=== PATIENT | female | born 1955 | race Caucasian/White ===

== ENCOUNTER 2018-07-27 12:48 | Emergency (ER) | payer OTHER ==
[~2018-07-27 12:48] MED LIST: ACET-2743 PO; ALBU18HF7 IH; ALBU2.5V2 IH; ATOR10TA69 PO; FLUT1AER IH; GABA-531 PO; HYDR12.54 PO; LACT10SO32 PO; LISI10TA7 PO; RANO500T3 PO; SUCR1TAB2 PO; TIOT18CA3 IH
[2018-07-27 13:39] LABS: APPEARANCE,URINE Clear (CLEAR); BILIRUBIN,URINE Negative (NEGATIVE); COLOR,URINE Yellow (YELLOW); GLUCOSE, URINE (UA) Negative (NEGATIVE); KETONES,URINE Negative (NEGATIVE); LEUKOCYTE ESTERASE ,URINE Negative (NEGATIVE); NITRATE,URINE Negative (NEGATIVE); OCCULT BLOOD,URINE Moderate (NEGATIVE); PROTEIN,URINE Negative (NEGATIVE); UROBILINOGEN,URINE 0.2 mg/dL (0.2-1.0)
[2018-07-27 13:48] LABS: BACTERIA,URINE None Seen /HPF (None Seen); RBC,URINE 0-1 /HPF (0-1); SQUAMOUS EPITHELIAL CELL,UR Rare /HPF (0-2); WBC,URINE 0-1 /HPF (0-1)
[2018-07-27 13:53] LABS: BASOPHILS % (AUTO) 0.9 % (0.0-5.0); EOSINOPHILS % (AUTO) 3.1 % (0.0-8.0); HEMATOCRIT 37.4 % (36-48); LYMPHOCYTES % (AUTO) 17.7 % (21.0-51.0); MEAN CORPUSCULAR HEMOGLOBIN 27.2 pg (27.0-33.0); MEAN CORPUSCULAR HGB CONC 33.3 g/dL (32.0-36.0); MEAN CORPUSCULAR VOLUME 81.5 fL (79-99); MONOCYTES % (AUTO) 7.4 % (3.0-13.0); NEUTROPHILS % (AUTO) 70.9 % (40.0-77.0); PLATELET COUNT (AUTO) 267 K/uL (130-400); RED BLOOD CELL COUNT(AUTO) 4.59 MIL/uL (4.00-5.50); RED CELL DISTRIBUTION WIDTH 15.5 % (11.0-15.5); WHITE BLOOD COUNT (AUTO) 8.1 K/uL (4.8-10.8)
[2018-07-27] MEDS ORDERED: DEXAMETHASONE SOD PHOSPHATE 10MG/ML 1ML VIAL ONE (13:53)
[2018-07-27 14:02] LABS: POTASSIUM 4.5 mmol/L (3.5-5.1)
[2018-07-27] MEDS ORDERED: IPRATROPIUM 0.5 MG/2.5 ML INH IH ONE (14:03)
[2018-07-27] MEDS ORDERED: ALBUTEROL SULFATE 0.083% 2.5 MG/3 ML INH IH ONE (14:03)
[2018-07-27 14:06] LABS: ALBUMIN 3.2 g/dL (3.5-5.0); BILIRUBIN,TOTAL 0.4 mg/dL (0.2-1.0); TOTAL PROTEIN, SERUM 8.4 g/dL (6.0-8.3)
[2018-07-27 14:31] LABS: B-TYPE NATRIURETIC PEPTIDE 59 pg/mL (0-100)
== END 2018-07-27 15:47 | disposition home or self-care (01) ==
LOC: EDH 12:48
DX: J44.1 Chronic obstructive pulmonary disease with (acute) exacerbation (principal); I25.10 Atherosclerotic heart disease of native coronary artery without angina pectoris; Z90.49 Acquired absence of other specified parts of digestive tract; Z90.710 Acquired absence of both cervix and uterus; Z87.891 Personal history of nicotine dependence
CPT/HCPCS: 36415; 71045; 80053; 81001; 83880; 84484; 85025; 87804 ×2; 93005; 94640; 96374; 99284; J1100

== ENCOUNTER 2018-07-29 12:44 | Emergency (ER) | payer OTHER ==
[2018-07-29 13:15] LABS: EOSINOPHILS % (AUTO) 1.1 % (0.0-8.0); LYMPHOCYTES % (AUTO) 23.3 % (21.0-51.0); MEAN CORPUSCULAR HEMOGLOBIN 27.2 pg (27.0-33.0); MEAN CORPUSCULAR HGB CONC 33.2 g/dL (32.0-36.0); MEAN CORPUSCULAR VOLUME 81.9 fL (79-99); MONOCYTES % (AUTO) 6.8 % (3.0-13.0); NEUTROPHILS % (AUTO) 67.8 % (40.0-77.0); PLATELET COUNT (AUTO) 331 K/uL (130-400); RED BLOOD CELL COUNT(AUTO) 4.77 MIL/uL (4.00-5.50); RED CELL DISTRIBUTION WIDTH 15.9 % (11.0-15.5)
[2018-07-29 13:26] LABS: CREATININE 1.1 mg/dL (0.5-1.5); POTASSIUM 3.4 mmol/L (3.5-5.1)
[2018-07-29 13:31] LABS: ALBUMIN 3.4 g/dL (3.5-5.0); BILIRUBIN,TOTAL 0.3 mg/dL (0.2-1.0); TOTAL PROTEIN, SERUM 8.5 g/dL (6.0-8.3)
[2018-07-29] MEDS ORDERED: METHYLPREDNISOLONE SOD SUCC 125MG/2ML VIAL ONE (13:39)
[2018-07-29] MEDS ORDERED: IPRATROPIUM/ALBUTEROL SULFATE 3 ML SOLUTION IH ONE (13:44)
[2018-07-29 14:03] LABS: ABG HCO3 23.2 mmol/L (21.0-28.0); ABG OXYGEN SATURATION 94.8 % (95.0-99.0); ABG PCO2 34 mmHg (32-45)
== END 2018-07-29 16:01 | disposition home or self-care (01) ==
LOC: EDH 12:44
DX: J44.1 Chronic obstructive pulmonary disease with (acute) exacerbation (principal); I25.10 Atherosclerotic heart disease of native coronary artery without angina pectoris; Z90.710 Acquired absence of both cervix and uterus; Z98.890 Other specified postprocedural states; Z87.891 Personal history of nicotine dependence
CPT/HCPCS: 36415; 36600; 71045; 80053; 82803; 83880; 84484; 85025; 93005; 94640; 96374; 99284; J2930

== ENCOUNTER 2024-02-10 11:29 | Inpatient (IN) | payer OTHER ==
[~2024-02-10] VITALS: Ht 165.1 cm; Wt 94.7 kg
[~2024-02-10 11:29] MED LIST changes: +DILT240T13 PO; +FLUC100T PO; -LACT10SO32 PO; +LACT10SO85 PO; +LISI10TA24 PO; -LISI10TA7 PO; +METH4TAB3 PO; +PRED10TA3 PO
[2024-02-10 11:55] LABS: BASOPHILS # (AUTO) 0.05 K/uL (0.00-0.20); BASOPHILS % (AUTO) 0.5 % (0.0-5.0); EOSINOPHILS # (AUTO) 0.12 K/uL (0.00-0.70); EOSINOPHILS % (AUTO) 1.1 % (0.0-8.0); HEMATOCRIT 36.9 % (36-48); IMMATURE GRANULOCYTE ABSOLUTE 0.05 K/uL (0-1); LYMPHOCYTES # (AUTO) 2.6 K/uL (1.0-4.8); LYMPHOCYTES % (AUTO) 24.1 % (21.0-51.0); MEAN CORPUSCULAR HEMOGLOBIN 27.1 pg (27.0-33.0); MEAN CORPUSCULAR VOLUME 84.8 fL (79-99); MONOCYTES # (AUTO) 0.9 K/uL (0.1-1.0); MONOCYTES % (AUTO) 7.9 % (3.0-13.0); NEUTROPHILS # (AUTO) 7.1 K/uL (1.8-7.7); NEUTROPHILS % (AUTO) 65.9 % (40.0-77.0); PLATELET COUNT (AUTO) 298 K/uL (130-400); RED BLOOD CELL COUNT(AUTO) 4.35 MIL/uL (4.00-5.50); RED CELL DISTRIBUTION WIDTH 15.3 % (11.0-15.5); WHITE BLOOD COUNT (AUTO) 10.7 K/uL (4.8-10.8)
[2024-02-10] MEDS: Solu-medROL 125MG VIAL IVP ONE (12:00)
[2024-02-10 12:01] VITALS: PULSE 86; RESP 22
[2024-02-10] MEDS: ALBUTEROL 0.083% 2.5 MG/3 ML INH IH ONE (12:01)
[2024-02-10 12:11] LABS: CREATININE 1.2 mg/dL (0.5-1.0); MAGNESIUM 1.7 mg/dL (1.80-2.40); POTASSIUM 3.8 mmol/L (3.5-5.1)
[2024-02-10 12:13] LABS: ABG BASE EXCESS 2.9 mmol/L (-2.0-3.0); ABG PCO2 40 mmHg (32-45); DEVICE COMMENT PETE RN RR; PO2, ARTERIAL BG 149.8 mmHg (83.0-108.0); VENT MODE, BG NEB (ROOM AIR)
[2024-02-10 12:39] LABS: B-TYPE NATRIURETIC PEPTIDE 71 pg/mL (0-100)
[2024-02-10 12:48] LABS: APPEARANCE,URINE CLEAR (CLEAR); BILIRUBIN,URINE NEGATIVE (NEGATIVE); COLOR,URINE COLORLESS (YELLOW); GLUCOSE, URINE (UA) NEGATIVE (NEGATIVE); KETONES,URINE NEGATIVE (NEGATIVE); LEUKOCYTE ESTERASE ,URINE NEGATIVE Leu/uL (NEGATIVE); NITRATE,URINE NEGATIVE (NEGATIVE); PROTEIN,URINE NEGATIVE (NEGATIVE); UROBILINOGEN,URINE 0.2 mg/dL (0.2-1.0)
[2024-02-10 12:50] LABS: ADD UA MICROSCOPIC YES
[2024-02-10 12:55] LABS: BACTERIA,URINE RARE /HPF (None Seen); RBC,URINE 0-1 /HPF (0-1); SQUAMOUS EPITHELIAL CELL,UR RARE /HPF (0-2); WBC,URINE 0-1 /HPF (0-1)
[2024-02-10] MEDS: levoFLOXacin 750 MG/D5W 150ML BAG IV ONE (14:27)
[2024-02-10] MEDS ORDERED: Solu-medROL 125MG VIAL IV ONE (15:30)
[2024-02-10] MEDS: 0.9%NACL 1000ML 1,000 ML IV SCH (16:12)
[2024-02-10] MEDS: AZITHROMYCIN 500MG+NS 250ML 250 ML IV SCH (16:12)
[2024-02-10] MEDS ORDERED: GLUCAGON 1MG KIT 1 MG ML IM PRN (16:30)
[2024-02-10] MEDS ORDERED: DEXTROSE 50%-WATER 50 ML DISP.SYRIN IV PRN (16:30)
[2024-02-10] MEDS ORDERED: ALBUTEROL 0.083% 2.5 MG/3 ML INH IH PRN (16:30)
[2024-02-10] MEDS ORDERED: PoTASSium chloRIDE 20MEQ/100ML 100 ML IV PRN (16:30)
[2024-02-10] MEDS ORDERED: ALBUTEROL 0.083% 2.5 MG/3 ML INH IH SCH (18:00)
[2024-02-10] MEDS: IpraTROPium/alBUTERol SULFATE 3 ML SOLUTION IH SCH (19:02)
[2024-02-10] MEDS: BUDESONIDE 0.25 MG/2 ML INH IH SCH (19:07)
[2024-02-10 19:08] VITALS: PULSE 72; RESP 19
[2024-02-10 19:22] VITALS: PULSE 74; RESP 18; O2SAT 98
[2024-02-10] MEDS: Solu-medROL 40MG VIAL IVP SCH (19:44)
[2024-02-10] MEDS: MAGNESIUM 2GM PREMIX 50ML 50 ML IV PRN (19:44)
[2024-02-10] MEDS: FAMOTIDINE 20MG VIAL IV SCH (19:44)
[2024-02-10 21:30] VITALS: BP 149/97; PULSE 95; RESP 18; TEMP 97.9
[2024-02-10] MEDS ORDERED: DICL75TA5 PO (21:51)
[2024-02-10] MEDS ORDERED: PRED-775 PO (21:51)
[2024-02-10] MEDS ORDERED: ATOR20TA65 PO (21:51)
[2024-02-10] MEDS ORDERED: FLUT1BLS13 PO (21:51)
[2024-02-10] MEDS ORDERED: MYCO500T5 PO (21:51)
[2024-02-10] MEDS ORDERED: OLME40TA18 PO (21:51)
[2024-02-10] MEDS ORDERED: ESOM40CA66 PO (21:51)
[2024-02-10 22:36] VITALS: O2SAT 96
[2024-02-10] MEDS: hydrOXYzine 10 MG TABLET PO SCH (23:04)
[2024-02-10 23:14] VITALS: PULSE 77; RESP 18
[2024-02-11] VITALS (15 sets, daily range): BP systolic 134–159; BP diastolic 71–86; PULSE 80–99; RESP 18–19; TEMP 97.7–98.2; O2SAT 96–99
[2024-02-11] MEDS: acetaMINOPHEN 325 MG TAB PO ONE (03:30)
[2024-02-11 06:06] LABS: BASOPHILS # (AUTO) 0.01 K/uL (0.00-0.20); BASOPHILS % (AUTO) 0.2 % (0.0-5.0); HEMATOCRIT 33.7 % (36-48); IMMATURE GRANULOCYTE ABSOLUTE 0.05 K/uL (0-1); LYMPHOCYTES # (AUTO) 0.5 K/uL (1.0-4.8); LYMPHOCYTES % (AUTO) 8.2 % (21.0-51.0); MEAN CORPUSCULAR HEMOGLOBIN 27.5 pg (27.0-33.0); MEAN CORPUSCULAR HGB CONC 31.5 g/dL (32.0-36.0); MEAN CORPUSCULAR VOLUME 87.5 fL (79-99); MONOCYTES # (AUTO) 0.1 K/uL (0.1-1.0); MONOCYTES % (AUTO) 1.3 % (3.0-13.0); NEUTROPHILS % (AUTO) 89.4 % (40.0-77.0); PLATELET COUNT (AUTO) 229 K/uL (130-400); RED BLOOD CELL COUNT(AUTO) 3.85 MIL/uL (4.00-5.50); RED CELL DISTRIBUTION WIDTH 15.1 % (11.0-15.5); WHITE BLOOD COUNT (AUTO) 5.6 K/uL (4.8-10.8)
[2024-02-11 06:33] LABS: ALBUMIN 2.8 g/dL (3.5-5.0); BILIRUBIN,TOTAL 0.3 mg/dL (0.2-1.0); CREATININE 1.1 mg/dL (0.5-1.0); POTASSIUM 4.4 mmol/L (3.5-5.1); TOTAL PROTEIN, SERUM 6.3 g/dL (6.0-8.3)
[2024-02-11 06:40] LABS: HEMOGLOBIN A1C 5.4 % (4.0-6.0)
[2024-02-11] MEDS: acetylCYSTeine10% 4ML VIAL IH SCH (18:54)
[2024-02-11] MEDS: MYCOPHENOLATE MOFETIL 250 MG CAPSULE PO SCH (20:11)
[2024-02-11] MEDS: atorVAStatin 20 MG TABLET PO SCH (20:11)
[2024-02-11] MEDS: Solu-medROL 40MG VIAL IVP SCH (20:14)
[2024-02-12] VITALS (15 sets, daily range): BP systolic 138–166; BP diastolic 60–99; PULSE 73–111; RESP 18–22; TEMP 97.2–98.2; O2SAT 94–98
[2024-02-12 04:29] LABS: INFLUENZA TYPE A Negative For Type A (NEGATIVE); INFLUENZA TYPE B Negative For Type B (NEGATIVE)
[2024-02-12 06:39] LABS: BASOPHILS # (AUTO) 0.01 K/uL (0.00-0.20); BASOPHILS % (AUTO) 0.1 % (0.0-5.0); HEMATOCRIT 32.3 % (36-48); IMMATURE GRANULOCYTE ABSOLUTE 0.07 K/uL (0-1); LYMPHOCYTES # (AUTO) 0.4 K/uL (1.0-4.8); LYMPHOCYTES % (AUTO) 3.7 % (21.0-51.0); MEAN CORPUSCULAR HGB CONC 31.6 g/dL (32.0-36.0); MEAN CORPUSCULAR VOLUME 85.4 fL (79-99); MONOCYTES # (AUTO) 0.4 K/uL (0.1-1.0); MONOCYTES % (AUTO) 3.8 % (3.0-13.0); NEUTROPHILS # (AUTO) 10.4 K/uL (1.8-7.7); NEUTROPHILS % (AUTO) 91.8 % (40.0-77.0); PLATELET COUNT (AUTO) 246 K/uL (130-400); RED BLOOD CELL COUNT(AUTO) 3.78 MIL/uL (4.00-5.50); RED CELL DISTRIBUTION WIDTH 15.2 % (11.0-15.5); WHITE BLOOD COUNT (AUTO) 11.3 K/uL (4.8-10.8)
[2024-02-12 07:01] LABS: ALBUMIN 2.8 g/dL (3.5-5.0); BILIRUBIN,TOTAL 0.2 mg/dL (0.2-1.0); MAGNESIUM 2.7 mg/dL (1.80-2.40); POTASSIUM 4.4 mmol/L (3.5-5.1)
[2024-02-12] MEDS: LoSARTan 100 MG TABLET PO SCH (08:36)
[2024-02-12] MEDS ORDERED: levoFLOXacin 750 MG/D5W 150ML BAG IV SCH (11:30)
[2024-02-12] MEDS: levoFLOXacin 500 MG/D5W 100 ML 100 ML IV SCH (12:06)
[2024-02-12] MEDS ORDERED: levoFLOXacin 500 MG/D5W 100 ML 100 ML IV SCH (15:30)
[2024-02-13] VITALS (14 sets, daily range): BP systolic 128–167; BP diastolic 55–108; PULSE 59–82; RESP 17–22; TEMP 97.4–98.6; O2SAT 95–97
[2024-02-13 05:29] LABS: BASOPHILS # (AUTO) 0.01 K/uL (0.00-0.20); BASOPHILS % (AUTO) 0.1 % (0.0-5.0); EOSINOPHILS # (AUTO) 0.01 K/uL (0.00-0.70); EOSINOPHILS % (AUTO) 0.1 % (0.0-8.0); HEMATOCRIT 34.3 % (36-48); IMMATURE GRANULOCYTE ABSOLUTE 0.06 K/uL (0-1); LYMPHOCYTES # (AUTO) 0.4 K/uL (1.0-4.8); LYMPHOCYTES % (AUTO) 4.4 % (21.0-51.0); MEAN CORPUSCULAR HEMOGLOBIN 27.2 pg (27.0-33.0); MEAN CORPUSCULAR HGB CONC 31.2 g/dL (32.0-36.0); MEAN CORPUSCULAR VOLUME 87.1 fL (79-99); MONOCYTES # (AUTO) 0.4 K/uL (0.1-1.0); MONOCYTES % (AUTO) 4.2 % (3.0-13.0); NEUTROPHILS # (AUTO) 8.7 K/uL (1.8-7.7); NEUTROPHILS % (AUTO) 90.6 % (40.0-77.0); PLATELET COUNT (AUTO) 240 K/uL (130-400); RED BLOOD CELL COUNT(AUTO) 3.94 MIL/uL (4.00-5.50); RED CELL DISTRIBUTION WIDTH 15.1 % (11.0-15.5); WHITE BLOOD COUNT (AUTO) 9.6 K/uL (4.8-10.8)
[2024-02-13 06:06] LABS: ALBUMIN 2.6 g/dL (3.5-5.0); BILIRUBIN,TOTAL 0.2 mg/dL (0.2-1.0); CREATININE 1.1 mg/dL (0.5-1.0); MAGNESIUM 2.5 mg/dL (1.80-2.40); POTASSIUM 4.2 mmol/L (3.5-5.1); TOTAL PROTEIN, SERUM 5.9 g/dL (6.0-8.3)
[2024-02-13] MEDS: Solu-medROL 125MG VIAL IVP SCH (12:51)
[2024-02-13] MEDS: BUDESONIDE 0.25 MG/2 ML INH IH SCH (18:24)
[2024-02-13] MEDS: LACTULOSE 20 GM/30 ML UDCUP PO PRN (21:09)
[2024-02-13] MEDS: trAZOdone HCL 50 MG TAB PO ONE (21:09)
[2024-02-14] VITALS (12 sets, daily range): BP systolic 131–198; BP diastolic 54–99; PULSE 60–76; RESP 16–20; TEMP 97.4–98.2; O2SAT 96–100
[2024-02-14 10:35] LABS: EOSINOPHILS # (AUTO) 0.01 K/uL (0.00-0.70); EOSINOPHILS % (AUTO) 0.1 % (0.0-8.0); HEMATOCRIT 37.1 % (36-48); IMMATURE GRANULOCYTE ABSOLUTE 0.09 K/uL (0-1); LYMPHOCYTES # (AUTO) 0.3 K/uL (1.0-4.8); LYMPHOCYTES % (AUTO) 2.4 % (21.0-51.0); MEAN CORPUSCULAR HEMOGLOBIN 26.9 pg (27.0-33.0); MEAN CORPUSCULAR HGB CONC 32.6 g/dL (32.0-36.0); MEAN CORPUSCULAR VOLUME 82.6 fL (79-99); MONOCYTES # (AUTO) 0.5 K/uL (0.1-1.0); MONOCYTES % (AUTO) 3.9 % (3.0-13.0); NEUTROPHILS # (AUTO) 11.1 K/uL (1.8-7.7); NEUTROPHILS % (AUTO) 92.8 % (40.0-77.0); PLATELET COUNT (AUTO) 287 K/uL (130-400); RED BLOOD CELL COUNT(AUTO) 4.49 MIL/uL (4.00-5.50); WHITE BLOOD COUNT (AUTO) 11.9 K/uL (4.8-10.8)
[2024-02-14 10:45] LABS: POTASSIUM 3.6 mmol/L (3.5-5.1)
[2024-02-14] MEDS: Solu-medROL 40MG VIAL IVP SCH (11:40)
[2024-02-14] MEDS: PoTASSium chloRIDE 20MEQ ER 20 MEQ ERTAB PO PRN (15:57)
[2024-02-14] MEDS: hydrALAZine 20MG/ML VIAL IV PRN (20:58)
[2024-02-15] VITALS (13 sets, daily range): BP systolic 130–160; BP diastolic 54–91; PULSE 75–85; RESP 16–20; TEMP 97.7–98.1; O2SAT 95–98
[2024-02-15] MEDS ORDERED: hydrOXYzine 10 MG TABLET PO ONE
[2024-02-15] MEDS: PoTASSium chl 10% ELIXIR 20MEQ 20 MEQ/15 ML UDCUP PO PRN (02:56)
[2024-02-15 09:27] LABS: BASOPHILS # (AUTO) 0.01 K/uL (0.00-0.20); BASOPHILS % (AUTO) 0.1 % (0.0-5.0); EOSINOPHILS # (AUTO) 0.01 K/uL (0.00-0.70); EOSINOPHILS % (AUTO) 0.1 % (0.0-8.0); HEMATOCRIT 40.7 % (36-48); IMMATURE GRANULOCYTE ABSOLUTE 0.09 K/uL (0-1); LYMPHOCYTES # (AUTO) 0.4 K/uL (1.0-4.8); LYMPHOCYTES % (AUTO) 3.5 % (21.0-51.0); MEAN CORPUSCULAR HEMOGLOBIN 26.9 pg (27.0-33.0); MEAN CORPUSCULAR HGB CONC 31.4 g/dL (32.0-36.0); MEAN CORPUSCULAR VOLUME 85.7 fL (79-99); MONOCYTES # (AUTO) 0.3 K/uL (0.1-1.0); MONOCYTES % (AUTO) 2.7 % (3.0-13.0); NEUTROPHILS # (AUTO) 10.3 K/uL (1.8-7.7); NEUTROPHILS % (AUTO) 92.8 % (40.0-77.0); PLATELET COUNT (AUTO) 299 K/uL (130-400); RED BLOOD CELL COUNT(AUTO) 4.75 MIL/uL (4.00-5.50); WHITE BLOOD COUNT (AUTO) 11.1 K/uL (4.8-10.8)
[2024-02-15 09:38] LABS: CREATININE 1.1 mg/dL (0.5-1.0); POTASSIUM 4.3 mmol/L (3.5-5.1)
[2024-02-15 09:42] LABS: ALBUMIN 3.1 g/dL (3.5-5.0); BILIRUBIN,TOTAL 0.4 mg/dL (0.2-1.0); MAGNESIUM 2.5 mg/dL (1.80-2.40); TOTAL PROTEIN, SERUM 6.6 g/dL (6.0-8.3)
[2024-02-15] MEDS: amLODIPine 5 MG TAB PO SCH (10:06)
[2024-02-15] MEDS: Solu-medROL 125MG VIAL IVP SCH (12:00)
[2024-02-16] VITALS (14 sets, daily range): BP systolic 117–150; BP diastolic 60–87; PULSE 63–87; RESP 16–18; TEMP 97.5–98.4; O2SAT 96–100
[2024-02-16] MEDS: IpraTROPium/alBUTERol SULFATE 3 ML SOLUTION IH ONE (06:20)
[2024-02-16] MEDS: BUDESONIDE 0.25 MG/2 ML INH IH ONE (06:21)
[2024-02-16] MEDS: hydrOXYzine 10 MG TABLET PO ONE (07:53)
[2024-02-16] MEDS ORDERED: Solu-medROL 125MG VIAL IVP SCH (13:00)
[2024-02-16] MEDS: Solu-medROL 125MG VIAL IVP SCH (13:04)
[2024-02-16] MEDS: amLODIPine 5 MG TAB PO SCH (20:25)
[2024-02-17] VITALS (16 sets, daily range): BP systolic 112–142; BP diastolic 63–81; PULSE 71–86; RESP 18; TEMP 97.6–98.1; O2SAT 96–100
[2024-02-17] MEDS: Solu-medROL 40MG VIAL IVP SCH ×2 (13:39→20:59)
[2024-02-17] MEDS: hydrOXYzine 10 MG TABLET PO ONE (23:48)
[2024-02-18 00:06] VITALS: BP 142/79; PULSE 74; RESP 18; TEMP 98.2
[2024-02-18 04:21] VITALS: BP 168/74; PULSE 73; RESP 20; TEMP 97.8
[2024-02-18 05:23] LABS: BASOPHILS # (AUTO) 0.01 K/uL (0.00-0.20); BASOPHILS % (AUTO) 0.1 % (0.0-5.0); EOSINOPHILS # (AUTO) 0.01 K/uL (0.00-0.70); EOSINOPHILS % (AUTO) 0.1 % (0.0-8.0); HEMATOCRIT 34.7 % (36-48); IMMATURE GRANULOCYTE ABSOLUTE 0.17 K/uL (0-1); LYMPHOCYTES # (AUTO) 0.4 K/uL (1.0-4.8); MEAN CORPUSCULAR HEMOGLOBIN 26.9 pg (27.0-33.0); MEAN CORPUSCULAR HGB CONC 31.4 g/dL (32.0-36.0); MEAN CORPUSCULAR VOLUME 85.7 fL (79-99); MONOCYTES # (AUTO) 0.6 K/uL (0.1-1.0); MONOCYTES % (AUTO) 4.3 % (3.0-13.0); NEUTROPHILS # (AUTO) 11.7 K/uL (1.8-7.7); NEUTROPHILS % (AUTO) 91.2 % (40.0-77.0); PLATELET COUNT (AUTO) 242 K/uL (130-400); RED BLOOD CELL COUNT(AUTO) 4.05 MIL/uL (4.00-5.50); RED CELL DISTRIBUTION WIDTH 15.2 % (11.0-15.5); WHITE BLOOD COUNT (AUTO) 12.8 K/uL (4.8-10.8)
[2024-02-18 05:38] LABS: MAGNESIUM 2.3 mg/dL (1.80-2.40); POTASSIUM 4.3 mmol/L (3.5-5.1)
[2024-02-18 06:29] VITALS: PULSE 70; RESP 18; O2SAT 99
[2024-02-18 08:00] VITALS: BP 157/93; PULSE 70; RESP 18; TEMP 97.5; O2SAT 99
[2024-02-18] MEDS ORDERED: LEVO-70 PO (08:49)
[2024-02-18] MEDS ORDERED: PRED20TA3 PO (08:49)
== END 2024-02-18 11:30 | disposition home or self-care (01) | DRG 193 ==
LOC: EDH 11:29 → EDHIP 15:18 → 3CH 20:38
PROVIDERS: ADMIT Internal Medicine Sleep Medicine; ATTEND Internal Medicine Sleep Medicine
DX: J18.9 Pneumonia, unspecified organism (principal); E43 Unspecified severe protein-calorie malnutrition; J96.21 Acute and chronic respiratory failure with hypoxia; J44.1 Chronic obstructive pulmonary disease with (acute) exacerbation; Z20.822 Contact with and (suspected) exposure to COVID-19; E78.5 Hyperlipidemia, unspecified; E83.42 Hypomagnesemia; J84.10 Pulmonary fibrosis, unspecified; G47.33 Obstructive sleep apnea (adult) (pediatric); F17.200 Nicotine dependence, unspecified, uncomplicated; K21.9 Gastro-esophageal reflux disease without esophagitis; E66.812 Obesity, class 2; I50.9 Heart failure, unspecified; I11.0 Hypertensive heart disease with heart failure; Z90.710 Acquired absence of both cervix and uterus; Z99.81 Dependence on supplemental oxygen; Z68.36 Body mass index [BMI] 36.0-36.9, adult; Z90.49 Acquired absence of other specified parts of digestive tract
CPT/HCPCS: 36415; 36600; 71045; 78580; 80048; 80053; 81001; 82306; 82607; 82803; 82948; 83036; 83735; 83880; 84145; 84484; 85025; 85378; 85651; 86140; 87040; 87071; 87205; 87426; 87449; 87804; 93005; 94640; 94664; A9540; G0378; J0360; J0456; J1956; J2919; J3475; J3490; J7030; J7517; J7608

== ENCOUNTER 2025-05-01 09:47 | Observation (INO) | payer OTHER ==
[~2025-05-01] VITALS: Ht 165.1 cm; Wt 97.6 kg
[2025-05-01] VITALS (9 sets, daily range): BP systolic 152–164; BP diastolic 81–91; PULSE 81–94; RESP 16–20; TEMP 97.6–98.3; O2SAT 97–100
[~2025-05-01 09:47] MED LIST changes: -ACET-2743 PO; -ALBU18HF7 IH; -ALBU2.5V2 IH; +ATOR10 PO; -ATOR10TA69 PO; +AZIT500T4 PO; +DILT240C81 PO; -DILT240T13 PO; -FLUC100T PO; -FLUT1AER IH; +FLUT1BLS12 PO; +FURO40TA7 PO; -GABA-531 PO; -HYDR12.54 PO; +HYDR200T75 PO; -LACT10SO85 PO; +LEVO750T68 PO; -LISI10TA24 PO; -METH4TAB3 PO; +MYCO500T PO; +PILOC5 PO; +PRED-775 PO; -PRED10TA3 PO; +PRED20TA3 PO; -RANO500T3 PO; +REVE175V IH; -SUCR1TAB2 PO; +THEO300T52 PO; -TIOT18CA3 IH
[2025-05-01 10:39] LABS: IMMATURE GRANULOCYTE ABSOLUTE 0.03 K/uL (0-1); NUCLEATED RED BLOOD CELLS 0.0 % (0.0-0.19); PLATELET COUNT (AUTO) 195 K/uL (130-400); RED BLOOD CELL COUNT(AUTO) 3.80 MIL/uL (4.00-5.50); RED CELL DISTRIBUTION WIDTH 13.3 % (11.0-15.5); WHITE BLOOD COUNT (AUTO) 7.8 K/uL (4.8-10.8)
[2025-05-01 10:50] LABS: CREATININE 1.0 mg/dL (0.5-1.0); GLOMERULAR FILTR. RATE CALC 61.0 mL/min (>90); GLUCOSE,RANDOM 85.0 mg/dL (70-105); SODIUM SERUM 141.0 mmol/L (136-145); UREA NITROGEN, BLOOD 23.0 mg/dL (7-18)
[2025-05-01 11:07] LABS: INR 0.99 (0.85-1.15)
--- NOTE | 2025-05-01 11:07 | HMCIMG ---
STUDY CR chest, 1 view HISTORY Shortness of breath. TECHNIQUE Portable anteroposterior chest radiograph. COMPARISON Chest radiograph dated 10/27/2024 at 18:03 EDT. FINDINGS LUNGS There are diffusely scattered fine reticular opacities throughout both lungs, without focal consolidation, lobar collapse, or new mass. The reticular pattern appears overall similar to the prior study, without interval progression. No acute airspace infiltrate is seen. PLEURAL SPACES No pleural effusion or pneumothorax is identified. HEART AND MEDIASTINUM Cardiomediastinal silhouette is within normal limits and stable. BONES AND SOFT TISSUES No acute displaced rib fracture or aggressive osseous lesion is seen. Visualized soft tissues are unremarkable. IMPRESSION * Intervally stable, diffusely scattered bilateral reticular opacities, suggestive of a chronic interstitial process; no superimposed focal consolidation or large effusion. * No new acute cardiopulmonary abnormality. /[place]
[2025-05-01 11:24] LABS: SARS-CoV-2, RNA, NAAT NEGATIVE SARS CoV-2 (NEGATIVE)
[2025-05-01 11:33] LABS: INFLUENZA TYPE A Negative For Type A (NEGATIVE); INFLUENZA TYPE B Negative For Type B (NEGATIVE)
--- NOTE | 2025-05-01 12:47 | NUR ---
BENCHMARK JUST NOW CALLED AND IS SPEAKING W/DR RODRIGEZ
--- NOTE | 2025-05-01 12:50 | ERN ---
General Chief Complaint: Shortness of Breath Stated Complaint: HX OF PULMORAY FIBROSIS, SOB Time Seen by MD: 09:55 History of Present Illness Initial Comments 69-year-old female has been for shortness of breath. Patient is a with a has no concerns. Allergies: Coded Allergies: No Known Drug Intolerances (Verified Allergy, 01/02/12) Home Meds Active Scripts Prednisone (Prednisone) 20 Mg Tablet, 40 MG PO DAILY for 7 Days, #7 TAB Prov:THADDEUS GAMA DNP 10/30/24 Levofloxacin (Levaquin 750Mg Tabs) 750 Mg Tablet, 750 MG PO DAILY for 10 Days, #10 TAB Prov:THADDEUS GAMA DNP 10/30/24 Furosemide (Lasix 40Mg Tab) 40 Mg Tablet, 1 TAB PO DAILY for 30 Days, #30 TAB 0 Refills Prov:JINA BENDER MD 04/29/24 Reported Medications Fluticasone Propion/Salmeterol (Fluticasone-Salmeterol 250-50) 250 Mcg-50 Mcg/Dose Blst.w.dev, 1 PUFF PO BID 10/28/24 Azithromycin (Azithromycin) 500 Mg Tablet, 1 TAB PO DAILY 10/28/24 Theophylline Anhydrous (Theophylline Anhydrous) 300 Mg Tab.er.12h, 1 TAB PO HS 10/28/24 Prednisone (Deltasone/Orasone [Bulk]) 10 Mg Tab, 1 TAB PO DAILY 10/28/24 Hydroxychloroquine Sulfate (Hydroxychloroquine Sulfate) 200 Mg Tablet, 1 TAB PO BID 10/28/24 Pilocarpine HCl (Salagen) 5 Mg Tab, 1 TAB PO TID for 30 Days, #90 TAB 0 Refills 10/28/24 Revefenacin (Yupelri) 175 Mcg/3 Ml Vial.neb, 1 VIAL IH DAILY for 30 Days, #90 ML 0 Refills 10/28/24 Diltiazem HCl (Diltiazem ER) 240 Mg Capsule.er, 1 CAP PO DAILY for 30 Days, #30 CAP 0 Refills 04/25/24 Mycophenolate Mofetil (Cellcept) 500 Mg Tablet, 1 TAB PO BID for 30 Days, #60 TAB 0 Refills 04/25/24 Atorvastatin Calcium (LIPITOR) 20 Mg Tab, 1 TAB PO DAILY for 30 Days, #30 TAB 0 Refills 04/25/24 Past Medical History Past Medical History: COPD, Hypertension, Other Medical History Other: PULMONARY FIBROSIS Past Surgical History: Cholecystectomy, Other Surgical History Other: BACK, KNEE SX Female( History) History: Not Applicable ROS Dictation Dyspnea Physical Exam General Appearance: (+) no apparent distress, (+) apparent distress Orientation: (+) alert, (+) oriented x 3 Respiratory Comment That has bilateral wheezing and rales Heart: (+) regular, (+) no gallop Gastrointestinal: (+) soft, (+) non-tender Results Laboratory and Microbiology Lab and Micro Result Laboratory Tests Test 05/01/25 10:07 05/01/25 10:29 White Blood Count 7.8 K/uL (4.8-10.8) Red Blood Count 3.80 MIL/uL (4.00-5.50) L Hemoglobin 11.0 g/dL (12.0-16.0) L Hematocrit 34.8 % (36-48) L Mean Corpuscular Volume 91.6 fL (79-99) Mean Corpuscular Hemoglobin 28.9 pg (27.0-33.0) Mean Corpuscular Hemoglobin Concent 31.6 g/dL (32.0-36.0) L Red Cell Distribution Width 13.3 % (11.0-15.5) Platelet Count 195 K/uL (130-400) Mean Platelet Volume 9.5 fL (7.5-10.5) Immature Granulocyte % (Auto) 0.4 % (0-1) Neutrophils (%) (Auto) 73.5 % (40.0-77.0) Lymphocytes (%) (Auto) 15.9 % (21.0-51.0) L Monocytes (%) (Auto) 8.6 % (3.0-13.0) Eosinophils (%) (Auto) 1.2 % (0.0-8.0) Basophils (%) (Auto) 0.4 % (0.0-5.0) Neutrophils # (Auto) 5.7 K/uL (1.8-7.7) Lymphocytes # (Auto) 1.2 K/uL (1.0-4.8) Monocytes # (Auto) 0.7 K/uL (0.1-1.0) Eosinophils # (Auto) 0.09 K/uL (0.00-0.70) Basophils # (Auto) 0.03 K/uL (0.00-0.20) Absolute Immature Granulocyte (auto 0.03 K/uL (0-1) Nucleated Red Blood Cells 0.0 % (0.0-0.19) Prothrombin Time 10.5 SEC (9.6-11.6) Prothromb Time International Ratio 0.99 (0.85-1.15) Activated Partial Thromboplast Time 22.4 SEC (26.3-35.5) L Sodium Level 141 mmol/L (136-145) Potassium Level 4.4 mmol/L (3.5-5.1) Chloride Level 106 mmol/L (101-111) Carbon Dioxide Level 30 mmol/L (21-32) Blood Urea Nitrogen 23 mg/dL (7-18) H Creatinine 1.0 mg/dL (0.5-1.0) Glomerular Filtration Rate Calc 61 mL/min (>90) Random Glucose 85 mg/dL (70-105) Lactic Acid Level 1.2 mmol/L (0.8-2.5) Total Calcium 9.1 mg/dL (8.5-10.1) Troponin I High Sensitivity 16 ng/L (4-50) Procalcitonin 0.05 ng/mL (0.05-0.5) Influenza Type A Antigen Negative For Type A Influenza Type B Antigen Negative For Type B SARS-CoV-2, RNA, NAAT NEGATIVE SARS CoV-2 MDM MDM: Differential diagnosis: Rationale: Tests considered and ordered secondary to shared decision making include: labs, ECG and radiology Previous outside records reviewed: Old ER visits. Risk of complication and/or morbidity or mortality of patient management: None Medications-Per medication reconciliation Need for hospitalization: Patient does meet criteria for hospitalization. Need for emergency major/minor surgery: No There are no social concerns with this patient. Prescription drug management Prescriptions will include symptomatic care Patient's prior external medical records from other ER visits were reviewed by me as indicated. Prior testing and results from previous visits were reviewed. Prior tests were taken into account with medical decision making and resource utilization, independent historian/historians were used to obtain complete medical history. I independently interpreted the test that were performed, results were reviewed by me and considered findings on radiology if ordered. Medical management and examination interpretation discussions were had by me with other qualified healthcare professionals as indicated for the patient's care. ED Course Orders Procedure Category Date Status Time 12 Lead Ekg Tracing- EKG 05/01/25 Logged Technical 09:55 Cbc With Differential LAB 05/01/25 Complete 09:55 Basic Metabolic Panel LAB 05/01/25 Complete 09:55 Influenza Type A & B, LAB 05/01/25 Complete Rapid 09:55 Covid Rna Naat LAB 05/01/25 Complete 09:55 Lactic Acid LAB 05/01/25 Complete 09:55 Procalcitonin LAB 05/01/25 Complete 09:55 Pt And Ptt LAB 05/01/25 Complete 09:55 Troponin I High LAB 05/01/25 Complete Sensitivity 09:55 Chest 1vw RAD 05/01/25 Resulted 09:55 Methylprednisolone PHA 05/01/25 Complete Succ 125mg (Solu-Medr 10:00 Ipratropium/Albuterol PHA 05/01/25 Complete Neb (Duoneb) 10:00 Ipratropium/Albuterol PHA 05/01/25 Complete Neb (Duoneb) 10:30 Ipratropium/Albuterol PHA 05/01/25 Complete Neb (Duoneb) 10:30 Current Medications Medications (Trade) Dose Ordered Sig/Junior Route PRN Reason Start Time Stop Time Status Last Admin Dose Admin Albuterol (DUOneb) 1 HOUR CONTINUOUS NEB ONCE ONCE IH 05/01/25 10:30 05/01/25 10:14 DC Albuterol (DUOneb) 1 UDVIAL ONCE ONCE IH 05/01/25 10:00 05/01/25 10:10 DC Albuterol (DUOneb) 4 udvial ONCE ONCE IH 05/01/25 10:30 05/01/25 10:31 DC 05/01/25 10:18 Methylprednisolone Sodium Succinate (Solu-medROL 125MG) 120 mg ONCE ONCE IVP 05/01/25 10:00 05/01/25 10:01 DC 05/01/25 10:39 Vital Signs Date Time Temp Pulse Resp B/P (MAP) Pulse Ox O2 Delivery O2 Flow Rate FiO2 05/01/25 10:45 98.4 74 19 140/70 100 Room Air* 0 21 05/01/25 10:22 81 20 05/01/25 09:48 97.5 79 22 173/81 96 Room Air DX & DISP Disposition: Inpatient Departure Impression: Primary Impression: COPD exacerbation Condition: Stable Referrals: SELF,REFERRAL (PCP) JENNY SOTO MD May 01, 2025 12:50
[2025-05-01] MEDS ORDERED: ARTIFICAL TEARS SOL 15 ML OP PRN (13:00)
[2025-05-01] MEDS ORDERED: guaiFENesin-DM 200/20MG 10ML PO PRN (13:00)
[2025-05-01] MEDS ORDERED: BENZOCAINE/MENTH/CETYLPYRD CL 1 EACH LOZENGE MM PRN (13:00)
[2025-05-01] MEDS ORDERED: NITROGLYCERIN 0.4 MG SL TAB SL PRN (13:00)
[2025-05-01] MEDS ORDERED: MAG/ALUM/SIMETH 30 ML UDCUP PO PRN (13:00)
[2025-05-01] MEDS ORDERED: LIDOCAINE HCL 2% VISCOUS 30 ML, MAG/ALUM/SIMETH 30ML 30 ML, DICYCLOMINE HCL 20 MG PO PRN (13:00)
[2025-05-01] MEDS ORDERED: LACTULOSE 20 GM/30 ML UDCUP PO PRN (13:00)
[2025-05-01] MEDS ORDERED: ACET-2079 PO (14:07)
[2025-05-01] MEDS ORDERED: MYCO500T5 PO (14:07)
[2025-05-01] MEDS ORDERED: TIZA-194 PO (14:07)
[2025-05-01] MEDS ORDERED: ERGO500093 PO (14:07)
[2025-05-01] MEDS ORDERED: FURO40TA5 PO (14:07)
[2025-05-01] MEDS ORDERED: PRED10TA3 PO (14:07)
--- NOTE | 2025-05-01 14:30 | HP ---
[facility] HISTORY & PHYSICAL Date Patient Seen: May 01, 2025 Time of Visit: 14:30 Supervising Physician: [Dr. Montilla] Primary Care Physician: [BIS] Outpatient Specialists: [ ] Inpatient Consults: [N/A] PROBLEM LIST: Chronic obstructive pulmonary disease with acute exacerbation Acute normocytic normochromic anemia Hypertension Hyperlipidemia Pulmonary fibrosis Obesity Obstructive sleep apnea HPI: [This is a 69 yo fm with a hx of COPD who presented to the ED for evaluation of shortness of breath worsened over the last couple of days. She admits using home oxygen, mostly at night. Patient states some sick contacts at home. She does have a chronic cough, unable to expectorate phlegm currently. Has been a smoker since 32 years old and states does not smoke as much now. Patient follows Dr. Adams, pulmonology outpatient. She is treated for pulmonary fibrosis with multiple medications including ofev, theophyline, and mycophenylate. Her vitals and labs on admission were unremarkable. She is currently on room air saturating well however unable to take a deep breath without causing a significant coughing spell. Her CXR shows pronounced pulmonary fibrosis. Her COVID and flu swabs were negative in the ED.] Plan: Start solumedrol Duonebs Order BNP Obtain sputum culture if able Obtain ABG Reassess in AM, possible DC PAST MEDICAL HX: see above PAST SURGICAL HX: noncontributory SOCIAL HISTORY: No tobacco, ETOH, or illicit drug use Coded Allergies: No Known Drug Intolerances (Verified Allergy, 01/02/12) REVIEW OF SYSTEMS: 12 point ROS reviewed with patient. Pertinent positives mentioned above. Otherwise negative. PHYSICAL EXAM: GENERAL: alert, weak, awake oriented x 3, chronically ill appearing HEENT: EOMI, Sclera non icteric, moist mucosa NECK: Supple, no JVD, trachea midline LUNGS: bilateral chest tightness and wheezing, severe coughing spell triggered with deep inspiration HEART: Regular rate and rhythm. Normal S1 and S2, without murmurs ABD: Abdomen soft, nontender. Bowel sounds present EXT: No clubbing cyanosis or edema NEURO: Alert and oriented to person, follows commands Vital Signs (last 8hr) Date Time Temp Pulse Resp B/P (MAP) Pulse Ox O2 Delivery O2 Flow Rate FiO2 05/01/25 14:29 97.9 80 19 169/75 97 Room Air* 0 21 05/01/25 10:45 98.4 74 19 140/70 100 Room Air* 0 21 05/01/25 10:22 81 20 05/01/25 09:48 97.5 79 22 173/81 96 Room Air LABS: Hematology Labs: Test 05/01/25 10:07 Range/Units White Blood Count 7.8 4.8-10.8 K/uL Red Blood Count 3.80 L 4.00-5.50 MIL/uL Hemoglobin 11.0 L 12.0-16.0 g/dL Hematocrit 34.8 L 36-48 % Mean Corpuscular Volume 91.6 79-99 fL Mean Corpuscular Hemoglobin 28.9 27.0-33.0 pg Mean Corpuscular Hemoglobin Concent 31.6 L 32.0-36.0 g/dL Red Cell Distribution Width 13.3 11.0-15.5 % Platelet Count 195 130-400 K/uL Mean Platelet Volume 9.5 7.5-10.5 fL Immature Granulocyte % (Auto) 0.4 0-1 % Neutrophils (%) (Auto) 73.5 40.0-77.0 % Lymphocytes (%) (Auto) 15.9 L 21.0-51.0 % Monocytes (%) (Auto) 8.6 3.0-13.0 % Eosinophils (%) (Auto) 1.2 0.0-8.0 % Basophils (%) (Auto) 0.4 0.0-5.0 % Neutrophils # (Auto) 5.7 1.8-7.7 K/uL Lymphocytes # (Auto) 1.2 1.0-4.8 K/uL Monocytes # (Auto) 0.7 0.1-1.0 K/uL Eosinophils # (Auto) 0.09 0.00-0.70 K/uL Basophils # (Auto) 0.03 0.00-0.20 K/uL Absolute Immature Granulocyte (auto 0.03 0-1 K/uL Nucleated Red Blood Cells 0.0 0.0-0.19 % Chemistry Labs: Test 05/01/25 10:07 Range/Units Sodium Level 141 136-145 mmol/L Potassium Level 4.4 3.5-5.1 mmol/L Chloride Level 106 101-111 mmol/L Carbon Dioxide Level 30 21-32 mmol/L Blood Urea Nitrogen 23 H 7-18 mg/dL Creatinine 1.0 0.5-1.0 mg/dL Glomerular Filtration Rate Calc 61 >90 mL/min Random Glucose 85 70-105 mg/dL Lactic Acid Level 1.2 0.8-2.5 mmol/L Total Calcium 9.1 8.5-10.1 mg/dL Troponin I High Sensitivity 16 4-50 ng/L Procalcitonin 0.05 0.05-0.5 ng/mL Coagulation Labs: Test 05/01/25 10:07 Range/Units Prothrombin Time 10.5 9.6-11.6 SEC Prothromb Time International Ratio 0.99 0.85-1.15 Activated Partial Thromboplast Time 22.4 L 26.3-35.5 SEC DIAGNOSTICS / RADIOLOGY RESULTS: [ ] PLAN NEURO: Minimize central acting medications as possible. Maintain fall precautions, adequate lighting during the day PULMONARY: Supplemental 02 as needed. Maintain aspiration precautions at all times CARDIOVASCULAR: Follow hemodynamics. Vital signs per facility protocol GI & NUTRITION: Continue with nutritional support. Continue stool softeners and laxatives as needed. KIDNEYS & ELECTROLYTES: Strict monitoring of intake, output and overall fluid balance. Avoid nephrotoxic medications to the extent possible. Medications to be dosed according to renal function. Monitor electrolytes and replace as needed ENDOCRINE: Maintain blood glucose between 100-180 at all times. Hypoglycemia protocol in place INFECTIOUS DISEASE: Trend temperature, WBC and procalcitonin level Follow cultures, deescalate antibiotics as soon as possible. Panculture if new onset fever ONCOLOGY/HEMATOLOGY/COAGULATION: Monitor for s/s of bleeding Monitor hemoglobin, coagulation studies as needed SKIN: Pressure ulcer prevention per facility protocol Specialty mattress ORTHO/REHAB: Continue PT/OT Prophylaxis: Continue GI and DVT prophylaxis Code Status: Full Resuscitation Disposition: TBBRIA PARDO May 01, 2025 14:30
--- NOTE | 2025-05-01 14:50 | EKG ---
[facility] Test Date: 2025-05-01 Test Time: 09:59:46 Pat Name: NABEEL LYON Department: [facility] Room: 326 Gender: F Rn Admissions: [id number] : 1955 Requested By: JENNY SOTO Order Number: [id number] Reading MD: Day Bello Measurements Intervals [place] Rate: 72 P: 53 CA: 182 QRS: 23 QRSD: 92 T: 26 QT: 406 QTc: 445 Interpretive Statements Sinus rhythm Compared to ECG 10/27/2024 17:37:39 Myocardial infarct finding no longer present Electronically Signed On 05-03-2025 08:58:14 CREDIT CONTROL CLERK by Day Bello Please click the below link to view image of tracing.
[2025-05-01] MEDS: SODIUM CHLORIDE 3% FOR INHALATION 4 ML/AMP VIAL.NEB IH ONE (18:57)
[2025-05-01] MEDS: FAMOTIDINE 20MG TAB PO SCH (20:50)
[2025-05-01] MEDS: Solu-medROL 40MG VIAL IVP SCH (20:50)
[2025-05-01] MEDS ORDERED: FAMOTIDINE 20MG VIAL IV SCH (21:00)
[2025-05-02] VITALS (16 sets, daily range): BP systolic 138–183; BP diastolic 69–93; PULSE 82–100; RESP 16–20; TEMP 98–98.9; O2SAT 97–100
[2025-05-02 01:44] LABS: ABG BASE EXCESS -1.0 mmol/L (-2.0-3.0); ABG HCO3 21.5 mmol/L (21.0-28.0); ABG OXYGEN SATURATION 98.3 % (94.0-98.0); ABG PCO2 31 mmHg (32-45); ABG PH 7.467 (7.350-7.450); PO2, ARTERIAL BG 108.4 mmHg (83.0-108.0); TEMPERATURE, CELSIUS BG 37.0 CELSIUS (35.5-37.0); VENT MODE, BG RA (ROOM AIR)
[2025-05-02] MEDS: MYCOPHENOLATE MOFETIL 250 MG CAPSULE PO SCH (20:47)
[2025-05-02] MEDS ORDERED: THEOPHYLLINE ANHYDROUS 100 MG CAP.ER.24H PO SCH (21:00)
--- NOTE | 2025-05-02 21:20 | PN ---
[facility] PROGRESS NOTE Date Patient Seen: May 02, 2025 Time of Visit: 21:20 Supervising Physician: Dr. Zeyad Montilla Primary Care Physician: [BIS] Outpatient Specialists: [ ] Inpatient Consults: [N/A] PROBLEM LIST: Chronic obstructive pulmonary disease with acute exacerbation Acute normocytic normochromic anemia Hypertension Hyperlipidemia Pulmonary fibrosis Obesity Obstructive sleep apnea INTERVAL HISTORY: Patient is assessed and seen while resting in bed head of the bed elevated patient awake alert oriented accompanied by patient's bedside nurse. Nursing staff report no adverse events occurring overnight. Reviewed and discussed with patient medications being used, home medications, patient confirmed uses home O2. As needed has been prescribed, current with her medications, reconciled and restarted those that are appropriate, following discussed laboratory results vital signs. Plan is patient overnight reassess in a.m. patient has a improve patient can be discharged home follow up with PCP for outpatient. Further orders per course of stay. A.m. labs ordered. REVIEW OF SYSTEMS: 12 point ROS reviewed with patient. Pertinent positives mentioned above. Otherwise negative. PHYSICAL EXAM: GENERAL: alert, weak, awake oriented x 3, chronically ill appearing HEENT: EOMI, Sclera non icteric, moist mucosa NECK: Supple, no JVD, trachea midline LUNGS: bilateral chest tightness and wheezing, severe coughing spell triggered with deep inspiration HEART: Regular rate and rhythm. Normal S1 and S2, without murmurs ABD: Abdomen soft, nontender. Bowel sounds present EXT: No clubbing cyanosis or edema NEURO: Alert and oriented to person, follows commands Vital Signs (last 8hr) Date Time Temp Pulse Resp B/P (MAP) Pulse Ox O2 Delivery O2 Flow Rate FiO2 05/02/25 21:14 98.2 100 20 138/70 99 Nasal Cannula 2.0 05/02/25 20:00 98.2 100 20 138/70 99 Nasal Cannula 2.0 05/02/25 18:35 89 18 05/02/25 18:35 89 18 N/Cannula Low lpm 2.0 05/02/25 17:50 96 167/79 05/02/25 15:48 98.1 96 18 169/79 98 Room Air 05/02/25 14:20 82 16 166/87 100 Room Air LABS: Hematology Labs: Test 05/01/25 10:07 Range/Units White Blood Count 7.8 4.8-10.8 K/uL Red Blood Count 3.80 L 4.00-5.50 MIL/uL Hemoglobin 11.0 L 12.0-16.0 g/dL Hematocrit 34.8 L 36-48 % Mean Corpuscular Volume 91.6 79-99 fL Mean Corpuscular Hemoglobin 28.9 27.0-33.0 pg Mean Corpuscular Hemoglobin Concent 31.6 L 32.0-36.0 g/dL Red Cell Distribution Width 13.3 11.0-15.5 % Platelet Count 195 130-400 K/uL Mean Platelet Volume 9.5 7.5-10.5 fL Immature Granulocyte % (Auto) 0.4 0-1 % Neutrophils (%) (Auto) 73.5 40.0-77.0 % Lymphocytes (%) (Auto) 15.9 L 21.0-51.0 % Monocytes (%) (Auto) 8.6 3.0-13.0 % Eosinophils (%) (Auto) 1.2 0.0-8.0 % Basophils (%) (Auto) 0.4 0.0-5.0 % Neutrophils # (Auto) 5.7 1.8-7.7 K/uL Lymphocytes # (Auto) 1.2 1.0-4.8 K/uL Monocytes # (Auto) 0.7 0.1-1.0 K/uL Eosinophils # (Auto) 0.09 0.00-0.70 K/uL Basophils # (Auto) 0.03 0.00-0.20 K/uL Absolute Immature Granulocyte (auto 0.03 0-1 K/uL Nucleated Red Blood Cells 0.0 0.0-0.19 % Chemistry Labs: Test 05/02/25 19:36 05/02/25 01:05 05/01/25 10:07 Range/Units Whole Blood Glucose 118 H 70-110 MG/DL B-Type Natriuretic Peptide 110 H 0-100 pg/mL Sodium Level 141 136-145 mmol/L Potassium Level 4.4 3.5-5.1 mmol/L Chloride Level 106 101-111 mmol/L Carbon Dioxide Level 30 21-32 mmol/L Blood Urea Nitrogen 23 H 7-18 mg/dL Creatinine 1.0 0.5-1.0 mg/dL Glomerular Filtration Rate Calc 61 >90 mL/min Random Glucose 85 70-105 mg/dL Lactic Acid Level 1.2 0.8-2.5 mmol/L Total Calcium 9.1 8.5-10.1 mg/dL Troponin I High Sensitivity 16 4-50 ng/L Procalcitonin 0.05 0.05-0.5 ng/mL Coagulation Labs: Test 05/01/25 10:07 Range/Units Prothrombin Time 10.5 9.6-11.6 SEC Prothromb Time International Ratio 0.99 0.85-1.15 Activated Partial Thromboplast Time 22.4 L 26.3-35.5 SEC DIAGNOSTICS / RADIOLOGY RESULTS: [ ] PLAN Telemetry monitoring. Med surge status. Solu-Medrol 40 mg IV b.i.d. Breathing treatment ordered q.6 hours Aspiration precautions Incentive spirometer 6-10 times an hour while patient is awake and out of bed Out of bed for all meals. PT to evaluate discharge recommendations Further orders per course of stay A.m. labs Anticipate discharge within next 24 hours. NEURO: Minimize central acting medications as possible. Maintain fall precautions, adequate lighting during the day PULMONARY: Supplemental 02 as needed. Maintain aspiration precautions at all times CARDIOVASCULAR: Follow hemodynamics. Vital signs per facility protocol GI & NUTRITION: Continue with nutritional support. Continue stool softeners and laxatives as needed. KIDNEYS & ELECTROLYTES: Strict monitoring of intake, output and overall fluid balance. Avoid nephrotoxic medications to the extent possible. Medications to be dosed according to renal function. Monitor electrolytes and replace as needed ENDOCRINE: Maintain blood glucose between 100-180 at all times. Hypoglycemia protocol in place INFECTIOUS DISEASE: Trend temperature, WBC and procalcitonin level Follow cultures, deescalate antibiotics as soon as possible. Panculture if new onset fever ONCOLOGY/HEMATOLOGY/COAGULATION: Monitor for s/s of bleeding Monitor hemoglobin, coagulation studies as needed SKIN: Pressure ulcer prevention per facility protocol Specialty mattress ORTHO/REHAB: Continue PT/OT Prophylaxis: Continue GI and DVT prophylaxis Code Status: Full Resuscitation Disposition: YAYO POTTS AGACNP May 02, 2025 21:20
[2025-05-03] VITALS (11 sets, daily range): BP systolic 153–163; BP diastolic 76–108; PULSE 82–98; RESP 18–20; TEMP 97.9–98.2; O2SAT 97–100
[2025-05-03 04:14] LABS: NUCLEATED RED BLOOD CELLS 0.0 % (0.0-0.19); PLATELET COUNT (AUTO) 185.0 K/uL (130-400); RED BLOOD CELL COUNT(AUTO) 3.94 MIL/uL (4.00-5.50); RED CELL DISTRIBUTION WIDTH 13.2 % (11.0-15.5); WHITE BLOOD COUNT (AUTO) 7.7 K/uL (4.8-10.8)
[2025-05-03 04:37] LABS: ASPARTATE AMINOTRANSFERASE 24.0 U/L (10-37); CREATININE 1.2 mg/dL (0.5-1.0); GLOMERULAR FILTR. RATE CALC 49.0 mL/min (>90); GLUCOSE,RANDOM 122.0 mg/dL (70-105); SODIUM SERUM 141.0 mmol/L (136-145); TOTAL PROTEIN, SERUM 5.8 g/dL (6.0-8.3); UREA NITROGEN, BLOOD 25.0 mg/dL (7-18)
--- NOTE | 2025-05-03 13:09 | EKG ---
[facility] Test Date: 2025-05-01 Test Time: 16:26:40 Pat Name: NABEEL LYON Department: [facility] Room: 326 1 Gender: F Manager Med Surg: Adiel SOLARES : 1955 Requested By: PHILLIP BRYANT Order Number: [id number] Reading MD: Day Bello Measurements Intervals [place] Rate: 84 P: 40 ND: 170 QRS: 16 QRSD: 90 T: 28 QT: 400 QTc: 472 Interpretive Statements Normal sinus rhythm RSR' or QR pattern in V1 suggests right ventricular conduction delay Septal infarct , age undetermined T wave abnormality, consider anterior ischemia Compared to ECG 05/01/2025 09:59:46 RSR' in V1 or V2 now present Myocardial infarct finding now present T-wave abnormality now present Possible ischemia now present Electronically Signed On 05-03-2025 16:46:42 LABOR SUPERVISOR by Day Bello Please click the below link to view image of tracing.
--- NOTE | 2025-05-03 13:51 | DS ---
[facility] DISCHARGE SUMMARY Date Patient Seen: May 03, 2025 Time of Visit: 13:51 Supervising Physician: Dr. Live Bah Primary Care Physician: [BIS] Outpatient Specialists: [ ] Inpatient Consults: [N/A] PROBLEM LIST: Chronic obstructive pulmonary disease with acute exacerbation Acute exacerbation pulmonary fibrosis Acute normocytic normochromic anemia Hypertension Hyperlipidemia Pulmonary fibrosis Obesity Obstructive sleep apnea HOSPITAL COURSE: Patient clinically worked up diagnosed with acute exacerbation of chronic obstructive pulmonary disease and acute exacerbation of pulmonary fibrosis the patient was treated with IV Solu-Medrol, steroids. Patient already has home O2 set up. Patient did oxygen while hospitalized the patient will have home O2 already set up. Patient will be prescribed a tapering dose of prednisone. Patient has been encouraged to follow up with Dr. Yesenia Adams with the next 2- 3 days depending on the upcoming holiday. HPI (per admitting provider) This is a 69 yo fm with a hx of COPD who presented to the ED for evaluation of shortness of breath worsened over the last couple of days. She admits using home oxygen, mostly at night. Patient states some sick contacts at home. She does have a chronic cough, unable to expectorate phlegm currently. Has been a smoker since 32 years old and states does not smoke as much now. Patient follows Dr. Adams, pulmonology outpatient. She is treated for pulmonary fibrosis with multiple medications including ofev, theophyline, and mycophenylate. Her vitals and labs on admission were unremarkable. She is currently on room air saturating well however unable to take a deep breath without causing a significant coughing spell. Her CXR shows pronounced pulmonary fibrosis. Her COVID and flu swabs were negative in the ED The patient was treated for the following problems: ACTIVE PROBLEM LIST FOR THE HOSPITALIZATION: Chronic obstructive pulmonary disease with acute exacerbation Acute exacerbation pulmonary fibrosis CHRONIC PROBLEMS: continue previous management per PCP unless otherwise indicated Acute normocytic normochromic anemia Hypertension Hyperlipidemia Obesity Obstructive sleep apnea PROGRAMMING COORDINATOR FINDINGS/RECOMMENDATIONS: [ ] PROCEDURES: as mentioned above DISCHARGE MEDICATIONS: Tapering dose of prednisone Prednisone 20 mg p.o. for three days, three tablets Pt hemodynamically stable and afebrile at time of discharge. PCP notified of patients admission, hospital course and discharge. PHYSICAL EXAM: GENERAL: alert, weak, awake oriented x 3, chronically ill appearing HEENT: EOMI, Sclera non icteric, moist mucosa NECK: Supple, no JVD, trachea midline LUNGS: bilateral chest tightness and wheezing, severe coughing spell triggered with deep inspiration HEART: Regular rate and rhythm. Normal S1 and S2, without murmurs ABD: Abdomen soft, nontender. Bowel sounds present EXT: No clubbing cyanosis or edema NEURO: Alert and oriented to person, follows commands FOLLOW-UP: Dr Yesenia Adams Follow-up with PCP in 2-3 days RECOMMENDATIONS: See Discharge Instructions This case was seen and discussed with my supervising physician. More than 50 minutes spent on discharge process, including evaluation of the patient, discussion with nursing staff, medication reconciliation and follow-up appointments YAYO MENDOZA [facility] May 03, 2025 13:51
--- NOTE | 2025-05-03 14:50 | NUR ---
DISCHARGE PERIPHERAL IV REMOVED DISCHARGE EDUCATION AND INSTRUCTIONS PROVIDED TO PATIENT PATIENT AWARE TO FOLLOW UP WITH PCP OUT IN COMMUNITY PATIENT AWARE TO TAKE WRITTEN PRESCRIPTION TO PREFERRED PHARMACY ALL QUESTIONS ANSWERED
== END 2025-05-03 15:00 | disposition home or self-care (01) ==
LOC: EDH 09:47 → EDHIP 12:53 → 3DH 14:40
PROVIDERS: ADMIT Internal Medicine Critical Care Medicine; ATTEND Internal Medicine Critical Care Medicine
DX: J44.1 Chronic obstructive pulmonary disease with (acute) exacerbation (principal); I10 Essential (primary) hypertension; J84.10 Pulmonary fibrosis, unspecified; E78.5 Hyperlipidemia, unspecified; D64.9 Anemia, unspecified; E66.9 Obesity, unspecified; G47.33 Obstructive sleep apnea (adult) (pediatric); F17.200 Nicotine dependence, unspecified, uncomplicated; Z79.899 Other long term (current) drug therapy; Z98.890 Other specified postprocedural states; Z68.35 Body mass index [BMI] 35.0-35.9, adult; Z20.822 Contact with and (suspected) exposure to COVID-19
CPT/HCPCS: 96374; 96376 ×3; 99285; 84484; 80048; 85025; 85610; 85730; 87071; 87205; 87804 ×2; 82948 ×8; 83605; 36415 ×3; 87635; 71045; 93005 ×2; 94640; 84145; 82803; 83880; 36600; 83735; 80053; 85027; G0378 ×50; J2919 ×6; J7517 ×2; 94664